=== PATIENT | male | born 2000 | race Caucasian/White ===

== ENCOUNTER 2024-05-09 19:17 | Emergency (ER) | payer BC ==
[~2024-05-09] VITALS: Ht 165.1 cm; Wt 61.2 kg
[2024-05-09 20:11] VITALS: BP 107/67; O2SAT 99
[2024-05-09] MEDS ORDERED: ACETAMINOPHEN ES 500 MG TABLET ONE (20:33)
[2024-05-09 20:35] VITALS: TEMP 102.2
[2024-05-09] MEDS: ACETAMINOPHEN ES 500 MG TABLET PO ONE (20:35)
== END 2024-05-09 20:38 | disposition home or self-care (01) ==
LOC: ER 19:23
DX: B34.9 Viral infection, unspecified (principal); J45.909 Unspecified asthma, uncomplicated; R53.81 Other malaise

== ENCOUNTER 2024-05-12 18:29 | Emergency (ER) | payer BC ==
[~2024-05-12] VITALS: Ht 165.1 cm; Wt 59.0 kg
[2024-05-12 19:24] VITALS: BP 106/64; TEMP 98.9
[2024-05-12] MEDS ORDERED: AMOX-430 PO (20:25)
[2024-05-12 22:09] VITALS: O2SAT 98
== END 2024-05-12 22:09 | disposition home or self-care (01) ==
LOC: ER 18:30
DX: J32.9 Chronic sinusitis, unspecified (principal); J45.909 Unspecified asthma, uncomplicated